=== PATIENT | male | born 1990 | race African-American/Black ===

== ENCOUNTER 2018-12-04 21:10 | Emergency (ER) | payer SELFPAY ==
[~2018-12-04] VITALS: Ht 170.2 cm; Wt 90.0 kg
[2018-12-04 21:28] VITALS: BP 140/71; TEMP 98.8
[2018-12-04 22:38] VITALS: PULSE 60
== END 2018-12-04 22:38 | disposition home or self-care (01) ==
LOC: COL.ER 21:10
DX: S61.217A Laceration without foreign body of left little finger without damage to nail, initial encounter (principal); W25.XXXA Contact with sharp glass, initial encounter; Y92.59 Other trade areas as the place of occurrence of the external cause